=== PATIENT | male | born 1975 | race African-American/Black ===

== ENCOUNTER 2018-10-22 14:05 | Outpatient (RCR) | payer OTHER, SELFPAY ==
--- NOTE | 2018-10-22 15:10 | [facility].PTOPEV ---
PT Outpatient Evaluation Rehab PT Outpatient Evaluation Start: 10/22/18 14:52 Freq: Status: Active Protocol: Document 10/22/18 14:52 [email or web address] (Rec: 10/22/18 15:10 LESTER [id number]) Electronically Signed By Lance Suh, PT 10/22/18 14:52 Outpatient Therapy Subjective History Subjective History Patient is a 43 year old male presenting to outpatient PT with reports of R posterior hip and anterior/posterior thigh pain starting approximately 2 months. 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 Comorbidities include hx of cancer. Chief Complaint Pain,Stiff,Paresthesia, Weakness Symptom Type Ache,Burning,Numbness,Tingling Symptoms Relieved By Rest/Positioning,Heat Symptoms Aggravated By Standing,Bending/Stooping, Walking,Lifting Prior Functional Limitations None Current Functional Limitations Lifting,Housework,Standing, Squatting,Recreation Activity, Walking,Stairs,Bending/ Stooping Symptom Description Constant but Variable Level of pain today (0-10) 3 Pain scale - at its best (0-10) 2 Pain scale - at its worst (0-10) 7 Hip/Knee Eval Gait Observation General Gait Pattern Observation Decrease Weight Bear (R) Assistive Device Assistive Devices None / NA Palpation Tenderness right Knee Palpation Overall Comment R psoas/lateral hip/posterior hip MMT Hip Flexion Strength Grade 3- Fair- Hip Abduction Strength Grade 3 Fair Hip Adduction Strength Grade 3 Fair Hip Extension Strength Grade 3 Fair Hip External Rotation Strength Grade 3+ Fair+ Hip Internal Rotation Strength Grade 3+ Fair+ Knee Extension Strength Grade 4- Good- Knee Flexion Strength Grade 4- Good- ROM Hip ROM Reason Not Measured Within Functional Limits Knee ROM Reason Not Measured Within Functional Limits Special Tests Hip Bowstring (Cram) Test Positive Right Hip Gregg Test Positive Right Hip Piriformis Test Positive Right Hip 90-90 Straight Leg Raise Test Positive Right Sciatic Nerve Tension Test Negative Right Tinetti Sitting Balance Sitting Balance
== END 2018-10-22 14:10 | disposition home or self-care (01) ==
LOC: PT 14:05
PROVIDERS: Visit Provider Emergency Medicine
DX: R26.9 Unspecified abnormalities of gait and mobility (principal)
CPT/HCPCS: 97163

== ENCOUNTER → 2019-08-19 16:39 | Outpatient (CLI) | payer OTHER, SELFPAY ==
[2019-08-19 17:12] LABS: Basophils # 0.1 K/mm3 (0-0.2); Basophils % 0.9 % (0.1-2.0); Eosinophils # 0.5 K/mm3 (0.0-0.4); Eosinophils % 4.3 % (0.1-12.0); Hematocrit 47.1 % (42.0-52.0); Hemoglobin 15.5 g/dL (14.1-18.0); Lymphocytes # 1.8 K/mm3 (0.7-4.5); Lymphocytes % 16.4 % (10-50); Mean Corpuscular HGB Conc 32.8 g/dL (31.8-35.4); Mean Corpuscular Hemoglobin 31.5 pg (27.0-31.2); Mean Corpuscular Volume 96.1 fl (80-94); Mean Platelet Volume 10.8 fl (7.4-10.4); Monocytes # 0.7 K/mm3 (0.1-1.0); Monocytes % 6.2 % (1.7-9.3); Neutrophils # 7.8 K/mm3 (1.8-7.8); Neutrophils % 72.2 % (37.0-80.0); Platelet Count 175 K/mm3 (142-424); Red Blood Count 4.91 M/mm3 (4.60-6.20); Red Cell Distribution Width 16.8 % (11.5-17.5); White Blood Count 10.8 K/mm3 (4.8-10.8)
[2019-08-19 18:01] LABS: Chloride 107 mmol/L (98-107)
[2019-08-19 18:02] LABS: Potassium 4.8 mmoL/L (3.5-5.1); Sodium 138 mmol/L (136-145)
[2019-08-19 18:04] LABS: Alanine Aminotransferase 14 U/L (12-78); Anion Gap 9.8 mEq/L (5-15); Aspartate Amino Transferase 24 U/L (17-59); Blood Urea Nitrogen 12 mg/dl (9-20); Carbon Dioxide 26 mmol/L (22.0-30.0); Estimated Glomerular Filt Rate 73 ml/min (>60); GFR (African American) 88 ML/MIN (>60)
[2019-08-19 18:05] LABS: Albumin Level 4.2 g/dl (3.5-5.0); Albumin/Globulin Ratio 1.3 (1.1-1.8); Alkaline Phosphatase 109 U/L (38-126); Bilirubin,Total 0.6 mg/dl (0.2-1.3); Calcium 9.7 mg/dl (8.4-10.2); Chol/HDL Ratio 3.2 (1-3.5); Cholesterol 189 mg/dl (140-200); Globulin 3.3 g/dL (1.3-3.2); Glucose 112 mg/dl (74-100); HDL Cholesterol 59 mg/dl (40-60); Total Protein,Serum 7.5 g/dl (6.3-8.2); Triglycerides 108 mg/dl (30-150); VLDL Cholesterol 22 mg/dL (0-40)
[2019-08-19 18:16] LABS: Direct LDL Cholesterol 134.19 mg/dL (100-129)
[2019-08-19 18:21] LABS: T4 (Thyroxine) 6.9 ug/dl (5.53-11.0)
[2019-08-19 18:35] LABS: Thyroid Stimulating Hormone 1.26 uIU/mL (0.465-4.68)
[2019-08-21 11:16] LABS: Vitamin D 25 Hydroxy 8.9 ng/mL (30.0-100.0)
== END ==
PROVIDERS: Visit Provider Emergency Medicine
DX: Z00.00 Encounter for general adult medical examination without abnormal findings (principal); E55.9 Vitamin D deficiency, unspecified; Z79.899 Other long term (current) drug therapy
CPT/HCPCS: 80053; 80061; 82652; 84436; 84443; 85025